=== PATIENT | male | born 1975 | race Caucasian/White ===

== ENCOUNTER 2017-12-06 10:51 | Emergency (ER) | payer SELFPAY ==
[~2017-12-06] VITALS: Ht 175.3 cm; Wt 99.8 kg
--- NOTE | 2017-12-06 11:05 | ED GI ---
General Stated Complaint: VOMITING,DEHYDRATED Source of Information: Patient Exam Limitations: No Limitations History of Present Illness Date Seen by Provider: Dec 06, 2017 Time Seen by Provider: 11:03 Initial Comments To ER per private vehicle with reports of vomiting for 2 days. He's been unable to sleep due to the severe nausea vomiting and diffuse body aches. He denies any specific abdominal pains. He denies diarrhea. He is from [place], here working. Timing/Duration: 1-2 Days Severity/Quality: Moderate Location: Generalized Abdomen (generalized body) Associated Symptoms: Nausea/Vomiting Allergies and Home Medications Allergies Coded Allergies: No Known Drug Allergies (Unverified , 12/06/17) Home Medications Ondansetron 8 Mg Tab.rapdis, 8 MG PO Q6H PRN for NAUSEA/VOMITING-1ST LINE Prescribed by: ALICIA HALL on 12/06/17 1232 Sulfamethoxazole/Trimethoprim 1 Each Tablet, 1 EACH PO BID Prescribed by: ALICIA HALL on 12/06/17 1231 Patient Home Medication List Home Medication List Reviewed: Yes Review of Systems Constitutional: see HPI, chills, malaise EENTM: No Symptoms Reported Respiratory: No Symptoms Reported Cardiovascular: See HPI Gastrointestinal: See HPI, Denies Abdominal Pain, Denies Constipated, Denies Diarrhea, Nausea, Vomiting Genitourinary: No Symptoms Reported Musculoskeletal: no symptoms reported Skin: no symptoms reported Psychiatric/Neurological: No Symptoms Reported Endocrine: No Symptoms Reported Hematologic/Lymphatic: No Symptoms Reported Past [id number] Hx Patient Social History Recent Foreign Travel: No Contact w/Someone Who Travel: No Physical Exam Vital Signs VS - Last 72 Hours, by Label 12/06/17 12/06/17 10:56 13:12 Temp 98.2 Pulse 94 100 Resp 18 18 B/P (MAP) 151/100 (117) 126/98 Pulse Ox 97 98 O2 Delivery Room Air Capillary Refill : General Appearance: WD/WN, no apparent distress HEENT: PERRL/EOMI, normal ENT inspection Neck: non-tender, full range of motion Respiratory: normal breath sounds, no respiratory distress, no accessory muscle use Cardiovascular: regular rate, rhythm, no murmur Gastrointestinal: normal bowel sounds, non tender, soft, No tenderness Extremities: normal range of motion, non-tender, normal inspection Neurologic/Psychiatric: alert, normal mood/affect, oriented x 3 Skin: normal color, warm/dry Progress/Results/Core Measures Results/Orders Lab Results Laboratory Tests Test 12/06/17 11:01 12/06/17 11:54 Range/Units White Blood Count 9.4 4.3-11.0 10^3/uL Red Blood Count 4.64 4.35-5.85 10^6/uL Hemoglobin 15.8 13.3-17.7 G/DL Hematocrit 46 40-54 % Mean Corpuscular Volume 98 80-99 FL Mean Corpuscular Hemoglobin 34 25-34 PG Mean Corpuscular Hemoglobin Concent 35 32-36 G/DL Red Cell Distribution Width 15.1 H 10.0-14.5 % Platelet Count 115 L 130-400 10^3/uL Mean Platelet Volume 11.4 H 7.4-10.4 FL Neutrophils (%) (Auto) 78 H 42-75 % Lymphocytes (%) (Auto) 16 12-44 % Monocytes (%) (Auto) 6 0-12 % Eosinophils (%) (Auto) 0 0-10 % Basophils (%) (Auto) 0 0-10 % Neutrophils # (Auto) 7.3 1.8-7.8 X 10^3 Lymphocytes # (Auto) 1.5 1.0-4.0 X 10^3 Monocytes # (Auto) 0.5 0.0-1.0 X 10^3 Eosinophils # (Auto) 0.0 0.0-0.3 10^3/uL Basophils # (Auto) 0.0 0.0-0.1 10^3/uL Sodium Level 140 135-145 MMOL/L Potassium Level 3.8 3.6-5.0 MMOL/L Chloride Level 96 L 98-107 MMOL/L Carbon Dioxide Level 23 21-32 MMOL/L Anion Gap 21 H 5-14 MMOL/L Blood Urea Nitrogen 15 7-18 MG/DL Creatinine 1.04 0.60-1.30 MG/DL Estimat Glomerular Filtration Rate > 60 BUN/Creatinine Ratio 14 Glucose Level 91 70-105 MG/DL Calcium Level 10.1 8.5-10.1 MG/DL Total Bilirubin 2.6 H 0.1-1.0 MG/DL Aspartate Amino Transf (AST/SGOT) 67 H 5-34 U/L Alanine Aminotransferase (ALT/SGPT) 39 0-55 U/L Alkaline Phosphatase 73 40-136 U/L Total Protein 8.5 H 6.4-8.2 GM/DL Albumin 4.8 H 3.2-4.5 GM/DL Lipase 37 8-78 U/L Urine Color JOHAN H Urine Clarity SLIGHTLY CLOUDY Urine pH 6.5 5-9 Urine Specific [place] 1.015 L 1.016-1.022 Urine Protein 3+ H NEGATIVE Urine Glucose (UA) NEGATIVE NEGATIVE Urine Ketones 4+ H NEGATIVE Urine Nitrite POSITIVE H NEGATIVE Urine Bilirubin 2+ H NEGATIVE Urine Urobilinogen 12 H NORMAL MG/DL Urine Leukocyte Esterase 3+ H NEGATIVE Urine RBC (Auto) 1+ H NEGATIVE Urine RBC 2-5 H /HPF Urine WBC 50-100 H /HPF Urine Squamous Epithelial Cells 10-25 H /HPF Urine Crystals NONE /LPF Urine Bacteria FEW H /HPF Urine Casts NONE /LPF Urine Mucus LARGE H /LPF Urine Culture Indicated YES Urine Opiates Screen NEGATIVE NEGATIVE Urine Oxycodone Screen NEGATIVE NEGATIVE Urine Methadone Screen NEGATIVE NEGATIVE Urine Propoxyphene Screen NEGATIVE NEGATIVE Urine Barbiturates Screen NEGATIVE NEGATIVE Ur Tricyclic Antidepressants Screen NEGATIVE NEGATIVE Urine Phencyclidine Screen NEGATIVE NEGATIVE Urine Amphetamines Screen NEGATIVE NEGATIVE Urine Methamphetamines Screen NEGATIVE NEGATIVE Urine Benzodiazepines Screen NEGATIVE NEGATIVE Urine Cocaine Screen NEGATIVE NEGATIVE Urine Cannabinoids Screen NEGATIVE NEGATIVE My Orders Orders - ALICIA HALL APRN Cbc With Automated Diff (12/06/17 11:02) Comprehensive Metabolic Panel (12/06/17 11:02) Lipase (12/06/17 11:02) Ua Culture If Indicated (12/06/17 11:02) Saline Lock/Iv-Start (12/06/17 11:02) Lactated Ringers (Lr 1000 Ml Iv Solution (12/06/17 11:15) Lorazepam Injection (Ativan Injection) (12/06/17 11:15) Ondansetron Injection (Zofran Injectio (12/06/17 11:15) Drug Screen Stat (Urine) (12/06/17 11:13) Us Gallbladder [id number] (12/06/17 11:51) Lactated Ringers (Lr 1000 Ml Iv Solution (12/06/17 12:00) Urine Culture (12/06/17 11:54) Ceftriaxone Injection (Rocephin Injectio (12/06/17 12:30) Medications Given in ED Current Medications Medications Dose Ordered Sig/Chiara Route Start Time Stop Time Status Last Admin Dose Admin Ceftriaxone Sodium 1000 mg/ Sodium Chloride 100 ml @ 200 mls/hr ONCE ONCE IV 12/06/17 12:30 12/06/17 12:59 DC 12/06/17 12:30 200 MLS/HR Lorazepam 0.5 mg ONCE ONCE IVP 12/06/17 11:15 12/06/17 11:16 DC 12/06/17 11:12 0.5 MG Ondansetron HCl 8 mg ONCE ONCE IVP 12/06/17 11:15 12/06/17 11:16 DC 12/06/17 11:11 8 MG Vital Signs/I&O Vital Sign - Last 12Hours 12/06/17 12/06/17 10:56 13:12 Temp 98.2 Pulse 94 100 Resp 18 18 B/P (MAP) 151/100 (117) 126/98 Pulse Ox 97 98 O2 Delivery Room Air Departure Communication (Admissions) Progress Notes 1229-patient reports feeling much better at this time. His second liter of LR is infusing. He is also getting 1 g of Rocephin IV. Impression Impression: Primary Impression: Urinary tract infection Additional Impression: Nausea and vomiting Disposition: HOME, SELF-CARE Condition: Stable Departure-Patient Inst. Decision time for Depature: 12:30 Referrals: NO,LOCAL PHYSICIAN (PCP/Family) Primary Care Physician Patient Instructions: Urinary Tract Infection, Adult (DC) Add. Discharge Instructions: 1. Take antibiotics as directed starting this evening. Take nausea medication as directed. Return to ER for any worsening. Drink lots of fluids about 3-5 bottles of water a day for the next few days Scripts Ondansetron (Zofran Odt) 8 Mg Tab.rapdis 8 MG PO Q6H Y for NAUSEA/VOMITING-1ST LINE, #10 TAB Prov: ALICIA HALL DOCUMENT MANAGEMENT ANALYST 12/06/17 Sulfamethoxazole/Trimethoprim (Bactrim Ds Tablet) 1 Each Tablet 1 EACH PO BID, #14 TAB Prov: ALICIA HALL DOCUMENT MANAGEMENT ANALYST 12/06/17 ALICIA HALL APRN Dec 06, 2017 11:05
[2017-12-06 11:09] LABS: BASOPHILS % (AUTO) 0 % (0-10); EOSINOPHILS % (AUTO) 0 % (0-10); HEMATOCRIT 46 % (40-54); HEMOGLOBIN 15.8 G/DL (13.3-17.7); LYMPHOCYTES # (AUTO) 1.5 X 10^3 (1.0-4.0); LYMPHOCYTES % (AUTO) 16 % (12-44); MEAN CORPUSCULAR HEMOGLOBIN 34 PG (25-34); MEAN CORPUSCULAR HGB CONC 35 G/DL (32-36); MEAN CORPUSCULAR VOLUME 98 FL (80-99); MEAN PLATELET VOLUME 11.4 FL (7.4-10.4); MONOCYTES # (AUTO) 0.5 X 10^3 (0.0-1.0); MONOCYTES % (AUTO) 6 % (0-12); NEUTROPHILS # (AUTO) 7.3 X 10^3 (1.8-7.8); NEUTROPHILS % (AUTO) 78 % (42-75); PLATELET COUNT 115 10^3/uL (130-400); RED BLOOD COUNT 4.64 10^6/uL (4.35-5.85); RED CELL DISTRIBUTION WIDTH 15.1 % (10.0-14.5); WHITE BLOOD COUNT 9.4 10^3/uL (4.3-11.0)
[2017-12-06] MEDS: LACTATED RINGERS 1,000 ML IV SCH ×4 (11:12→12:00)
[2017-12-06] MEDS ORDERED: LORazepam INJ 2 MG/ML (ATIVAN) VIAL IVP ONE (11:15)
[2017-12-06] MEDS ORDERED: ONDANSETRON 4 MG/2 ML (SDV) Z0FRAN IVP ONE (11:15)
[2017-12-06 11:37] LABS: ALANINE AMINOTRANSFERASE 39 U/L (0-55); ALBUMIN 4.8 GM/DL (3.2-4.5); ALKALINE PHOSPHATASE 73 U/L (40-136); BILIRUBIN,TOTAL 2.6 MG/DL (0.1-1.0); BUN/CREATININE RATIO 14; CALCIUM 10.1 MG/DL (8.5-10.1); CARBON DIOXIDE 23 MMOL/L (21-32); CHLORIDE 96 MMOL/L (98-107); CREATININE SERUM 1.04 MG/DL (0.60-1.30); GFR ESTIMATED > 60; GLUCOSE 91 MG/DL (70-105); LIPASE 37 U/L (8-78); POTASSIUM 3.8 MMOL/L (3.6-5.0); SODIUM 140 MMOL/L (135-145); TOTAL PROTEIN 8.5 GM/DL (6.4-8.2)
[2017-12-06 12:00] LABS: CLARITY,URINE SLIGHTLY CLOUDY; COLOR,URINE AMBER; GLUCOSE, URINE (UA) NEGATIVE (NEGATIVE); KETONES,URINE 4+ (NEGATIVE); LEUKOCYTE ESTERASE ,URINE 3+ (NEGATIVE); NITRITE,URINE POSITIVE (NEGATIVE); PH,URINE 6.5 (5-9); PROTEIN,URINE 3+ (NEGATIVE); UROBILINOGEN,URINE 12 MG/DL (NORMAL)
[2017-12-06 12:15] LABS: BILIRUBIN,URINE 2+ (NEGATIVE)
[2017-12-06 12:16] LABS: BACTERIA,URINE FEW /HPF; WBC,URINE 50-100 /HPF
[2017-12-06 12:23] LABS: AMPHETAMINE SCREEN, URINE NEGATIVE (NEGATIVE); BARBITURATE SCREEN URINE NEGATIVE (NEGATIVE); BENZODIAZEPINES SCREEN URINE NEGATIVE (NEGATIVE); CANNABINOID SCREEN, URINE NEGATIVE (NEGATIVE); COCAINE SCREEN URINE NEGATIVE (NEGATIVE); METHADONE STAT NEGATIVE (NEGATIVE); METHAMPHETAMINE SCREEN URINE S NEGATIVE (NEGATIVE); OPIATE SCREEN URINE NEGATIVE (NEGATIVE); OXYCODONE STAT NEGATIVE (NEGATIVE); PROPOXYPHENE STAT NEGATIVE (NEGATIVE); TRICYCLIC ANTIDEPRESSANTS SCRE NEGATIVE (NEGATIVE)
[2017-12-06] MEDS ORDERED: cefTRIAXone INJECTION 1,000 MG in NS (IVPB) 100 ML IV ONE (12:30)
[2017-12-06] MEDS ORDERED: SULF1TAB35 PO (12:31)
[2017-12-06] MEDS ORDERED: ONDA8TAB9 PO (12:32)
--- NOTE | 2017-12-06 13:05 | Diagnostic Imaging Report ---
EXAM: RIGHT UPPER QUADRANT ULTRASOUND. DATE: 12/06/2017. COMPARISON: None. INDICATION: 42-year-old male, nausea, vomiting, weakness. PROCEDURE: Two-dimensional grayscale and color doppler ultrasound examination of the right upper quadrant was performed. FINDINGS: LIVER: The liver is diffusely increased in echogenicity with difficulties in beam penetration, consistent with diffuse fatty infiltration of the liver. There is no sonographically demonstrated solid or cystic liver mass. The outer liver contours are not grossly nodular. BILE DUCTS AND GALLBLADDER: There is no shadowing gallstone. The gallbladder is not distended. There is no pericholecystic fluid. The gallbladder wall measures 0.2 cm. There is no intrahepatic bile duct dilation demonstrated. The common bile duct is not visualized. RIGHT KIDNEY: Unremarkable right kidney. No hydronephrosis. The right kidney measures 10.6 cm x 6.7 cm x 5.2 cm. PANCREAS: The pancreas is not well seen. IMPRESSION: 1. No evidence of cholelithiasis or acute cholecystitis. 2. No identified intrahepatic bile duct dilation. The common bile duct is not well demonstrated. 3. Diffuse fatty infiltration of the liver. 4. The pancreas is not well seen. Dictated by: Dictated on workstation # [id number]
[2017-12-06 13:12] VITALS: BP 126/98
== END 2017-12-06 13:12 | disposition home or self-care (01) ==
LOC: ER 10:54
DX: N39.0 Urinary tract infection, site not specified (principal); R11.2 Nausea with vomiting, unspecified
CPT/HCPCS: 36415; 76705; 80053; 80306; 81000; 83690; 85025; 87088; 96361; 96365; 96375